=== PATIENT | male | born 1965 | race American Indian/Alaskan Native ===

== ENCOUNTER 2017-06-01 08:31 | Emergency (ER) | payer MEDICAID, OTHER ==
[2017-06-01 08:51] VITALS: TEMP 98.3
[2017-06-01] MEDS ORDERED: ceFAZolin IV 1 gm in Dextrose 1 GM/50 ML BAG IVPB STA (09:11)
[2017-06-01] MEDS ORDERED: Tetanus/Diphtheria Toxoids 0.5 ml Syringe IM ONE (09:11)
[2017-06-01] MEDS ORDERED: Labetalol 25mg/5ml Syringe IVP STA (09:11)
--- NOTE | 2017-06-01 09:11 | C.PDOC ---
History Of Present Illness 52-YEAR-OLD MALE, PRESENTS TO THE EMERGENCY DEPARTMENT WITH COMPLAINTS OF R HAND SWELL X 3 DAYS. PS R 5 FINGER ACCID PUNCTURED BY STAPLE. NO CONCERN FOR RETAINED FB. SINCE THEN INCR SWELLING FINGERS AND HAND. NO FEVER, CHILLS. NO HO DM. PS PREV GIVEN HTN MEDS BUT NEVER FU W A PMD. NONCOMPLIANT "FOR MANY YEARS". NO CP, DIZZY, RITCHIE. EXAM NAD NONTOXIC EXT R HAND +SWELLING DIFFUSE MILD NONPITTING AROM WO DIFF. NO FOCAL TEND. SKIN INTACT NO ERYTHEMA REMAINDER NEG Time Seen by Provider: 06/01/17 09:00 Chief Complaint (Nursing): Finger,Hand,&Wrist History Per: Patient History/Exam Limitations: no limitations Current Symptoms Are (Timing): Still Present Past Medical History Reviewed: Historical Data, Nursing Documentation, Vital Signs Vital Signs: Last Vital Signs Temp 98.3 F 06/01/17 08:43 Pulse 65 06/01/17 11:32 Resp 16 06/01/17 11:32 BP 164/96 H 06/01/17 11:32 Pulse Ox 99 06/01/17 11:34 - Medical History PMH: HTN Family History: States: No Known Family Hx - Social History Hx Tobacco Use: No Hx Alcohol Use: Yes Hx Substance Use: No - Immunization History Hx Tetanus Toxoid Vaccination: No ("I DON'T KNOW") Hx Influenza Vaccination: No Hx Pneumococcal Vaccination: No Review Of Systems Constitutional: Negative for: Fever, Chills Respiratory: Negative for: Shortness of Breath Gastrointestinal: Negative for: Nausea, Vomiting Musculoskeletal: Positive for: Hand Pain Physical Exam - Physical Exam Appears: Non-toxic, No Acute Distress Skin: Warm, Dry, No Rash Head: Atraumatic, Normacephalic Eye(s): bilateral: Normal Inspection, PERRL Nose: Normal Oral Mucosa: Moist Lips: Normal Appearing Neck: Normal ROM Cardiovascular: Rhythm Regular, No Murmur Respiratory: No Accessory Muscle Use Extremity: Other (R HAND +SWELLING DIFFUSE MILD NONPITTING AROM WO DIFF. NO FOCAL TEND.) Neurological/Psych: Oriented x3, Normal Speech ED Course And Treatment - Laboratory Results Result Diagrams: 06/01/17 10:26 06/01/17 10:26 O2 Sat by Pulse Oximetry: 99 (on RA) Pulse Ox Interpretation: Normal - Other Rad R HAND X-Ray: Interpreted by Me (NEG) Reevaluation Time: 11:49 Reassessment Condition: Improved (ADVISED NEED TO FU PMD FOR HTN MGMT, ABX COMPLETION) Disposition Counseled Patient/Family Regarding: Studies Performed, Diagnosis, Need For Followup, Rx Given - Disposition Referrals: [facility] [Outside] [facility] [Outside] Disposition: HOME/ ROUTINE Disposition Time: 11:50 Condition: IMPROVED Prescriptions: Amoxicillin/Clavulanate [Augmentin 875 MG-125 MG] 1 tab PO BID #14 tab Hydrochlorothiazide [Microzide] 12.5 mg PO DAILY #30 cap Lisinopril [Zestril] 10 mg PO DAILY #30 tab Instructions: Hypertension (ED), Cellulitis (ED) Forms: [employer] (Korean) - Clinical Impression Clinical Impression: Hypertension, Cellulitis - Scribe Statement The provider has reviewed the documentation as recorded by the Scribe (Juice Washington) All medical record entries made by the Scribe were at my direction and personally dictated by me. I have reviewed the chart and agree that the record accurately reflects my personal performance of the history, physical exam, medical decision making, and the department course for this patient. I have also personally directed, reviewed, and agree with the discharge instructions and disposition.
[2017-06-01] MEDS ORDERED: Enalaprilat 2.5 MG/2 ML IV ONE (09:24)
[2017-06-01] MEDS ORDERED: Enalaprilat 2.5 MG/2 ML ONE (09:55)
[2017-06-01] MEDS ORDERED: ceFAZolin 1 gm FROZEN Premix 1 GM/50 ML ML IVPB ONE (09:55)
--- NOTE | 2017-06-01 10:06 | RAD ---
PROCEDURE: Right Hand Radiographs. HISTORY: SWELLING RO FB R 5 FINGER COMPARISON: None. FINDINGS: BONES: Normal. No fracture. JOINTS: Normal. No osteoarthritic changes. SOFT TISSUES: Normal. OTHER FINDINGS: None. IMPRESSION: Normal right hand radiographs.
[2017-06-01 10:36] LABS: BASO # 0.1 K/uL (0.0-0.2); BASO % 1.1 % (0.0-2.0); EOS % 0.7 % (0.0-4.0); HEMOGLOBIN 14.1 g/dL (12.0-18.0); LYMPH # 2.4 K/uL (1.0-4.3); LYMPH % 41.9 % (20.0-40.0); MEAN CELL VOLUME 89.6 fL (80.0-94.0); MEAN CORPUSCULAR HEMOGLOBIN 30.6 pg (27.0-31.0); MEAN CORPUSCULAR HGB CONC 34.2 g/dL (33.0-37.0); MEAN PLATELET VOLUME 9.2 fL (7.2-11.7); MONO # 0.7 K/uL (0.0-0.8); MONO % 11.9 % (0.0-10.0); NEUT # 2.6 K/uL (1.8-7.0); NEUT % 44.4 % (50.0-75.0); NRBC % 0.1 % (0.0-2.0); RBC 4.6 Mil/uL (4.40-5.90); RED CELL DISTRIBUTION WIDTH 15.1 % (11.5-14.5); WHITE BLOOD COUNT 5.7 K/uL (4.8-10.8)
[2017-06-01 10:49] VITALS: RESP 16
[2017-06-01 11:01] LABS: BLOOD UREA NITROGEN 15 mg/dL (9-20); CALCIUM 8.7 mg/dl (8.6-10.4); GFR AFRICAN-AMERICAN > 60; GFR NON-AFRICAN AMERICAN > 60
[2017-06-01 11:32] VITALS: BP 164/96; PULSE 65
[2017-06-01 11:34] VITALS: O2SAT 99
== END 2017-06-01 12:10 | disposition home or self-care (01) ==
LOC: C.ER 08:31
DX: L03.113 Cellulitis of right upper limb (principal); I10 Essential (primary) hypertension
CPT/HCPCS: 73130; 80048; 85025; 87040; 90471; 90714; 96365; 96375; 99284; J0690

== ENCOUNTER 2017-10-24 20:16 | Emergency (ER) | payer SELFPAY ==
[2017-10-24 20:33] VITALS: RESP 18; TEMP 99.1
--- NOTE | 2017-10-24 20:51 | C.PDOC ---
History Of Present Illness 52 y/o male presents to the ED for evaluation of right pinky injury, sustained 1 week ago. States he accidentally stuck his right pinky with a fishing hook. Now complaining of increasing pain and swelling near the nail bed. Otherwise denies any fever, chills, redness or drainage to site. Reports his last tetanus booster was given here on 06/01/17. Additionally, patient reports PMHx of hypertension, but is noncompliant with medications. Denies any chest pain, SOB, blurry vision, or headache. Time Seen by Provider: 10/24/17 20:29 Chief Complaint (Nursing): Abnormal Skin Integrity History Per: Patient History/Exam Limitations: no limitations Onset/Duration Of Symptoms: Days Current Symptoms Are (Timing): Still Present Past Medical History Reviewed: Historical Data, Nursing Documentation, Vital Signs Vital Signs: Last Vital Signs Temp 99.1 F 10/24/17 20:29 Pulse 75 10/24/17 22:04 Resp 18 10/24/17 22:04 BP 181/99 H 10/24/17 22:04 Pulse Ox 98 10/24/17 22:04 - Medical History PMH: HTN Family History: States: Unknown Family Hx - Social History Hx Tobacco Use: No Hx Alcohol Use: Yes Hx Substance Use: No - Immunization History Hx Tetanus Toxoid Vaccination: No ("I DON'T KNOW") Hx Influenza Vaccination: No Hx Pneumococcal Vaccination: No Review Of Systems Constitutional: Negative for: Fever, Chills Eyes: Negative for: Vision Change Cardiovascular: Negative for: Chest Pain Respiratory: Negative for: Shortness of Breath Skin: Positive for: Lesions (to nailbed of right pinky finger). Negative for: Rash Neurological: Negative for: Headache Physical Exam - Physical Exam Appears: No Acute Distress Skin: No Rash Head: Atraumatic, Normacephalic Eye(s): bilateral: PERRL, EOMI Oral Mucosa: Moist Neck: Supple Chest: Symmetrical, No Tenderness Cardiovascular: Rhythm Regular, No Murmur Respiratory: No Rales, No Rhonchi, No Wheezing, Other (Clear to auscultation bilaterally) Extremity: Normal ROM, Capillary Refill (less than 2 sec), No Deformity, Swelling (trace bilateral pitting edema), Other (Mild swelling around nail bed of right 5th digit, mildly indurated; no warmth, erythema or fluctuance) Pulses: Left Radial: Normal, Right Radial: Normal Neurological/Psych: Oriented x3, Normal Speech, Normal Motor, Normal Sensation ED Course And Treatment O2 Sat by Pulse Oximetry: 99 (RA) Pulse Ox Interpretation: Normal Medical Decision Making Medical Decision Making: pt asymptomatic with elevated bp; dangers of untreated bp discussed with patient. pt given one dose lisinopril in ed, will d/c with one month; pt strongly advised to f.u pmd vishal. pt is asymptomatic; has no cp, no sob, no dizziness, headache or blurred vision. one dose lisinopiril given and discharged with one month supply- enough time to arrange out patient f/u appt. Disposition Counseled Patient/Family Regarding: Diagnosis, Need For Followup, Rx Given - Disposition Referrals: [facility] [Outside] Disposition: HOME/ ROUTINE Disposition Time: 21:57 Condition: GOOD Additional Instructions: Please take blood pressure daily at the same time. Please follow up with medical clinic or pmd on Friday for blood pressure check. Warm compresses to finger. Take antibiotics as prescribed. Prescriptions: Cephalexin [cephalexin] 500 mg PO QID #28 cap Lisinopril [Zestril] 10 mg PO DAILY #30 tablet Instructions: High Blood Pressure (DC) Forms: [employer] [facility] (Slovenian), General Discharge Instructions - Clinical Impression Clinical Impression: Hypertension, Finger infection - PA / FINE ARTIST / Resident Statement MD/DO has reviewed & agrees with the documentation as recorded. - Scribe Statement The provider has reviewed the documentation as recorded by the Scribe (Ana María Molina) All medical record entries made by the Scribe were at my direction and personally dictated by me. I have reviewed the chart and agree that the record accurately reflects my personal performance of the history, physical exam, medical decision making, and the department course for this patient. I have also personally directed, reviewed, and agree with the discharge instructions and disposition.
[2017-10-24 22:10] VITALS: BP 181/99; PULSE 75
[2017-10-25 07:06] VITALS: O2SAT 99
== END 2017-10-24 22:10 | disposition home or self-care (01) ==
LOC: C.ER 20:16
DX: I10 Essential (primary) hypertension (principal); L08.9 Local infection of the skin and subcutaneous tissue, unspecified

== ENCOUNTER 2017-12-16 15:42 | Inpatient (IN) | payer MEDICAID ==
[2017-12-16 16:34] LABS: BASO % 0.3 % (0.0-2.0); HEMOGLOBIN 16.2 g/dL (12.0-18.0); LYMPH # 1.2 K/uL (1.0-4.3); LYMPH % 15.7 % (20.0-40.0); MEAN CELL VOLUME 89.9 fL (80.0-94.0); MEAN CORPUSCULAR HEMOGLOBIN 30.4 pg (27.0-31.0); MEAN CORPUSCULAR HGB CONC 33.8 g/dL (33.0-37.0); MEAN PLATELET VOLUME 9.1 fL (7.2-11.7); MONO # 0.2 K/uL (0.0-0.8); MONO % 3.1 % (0.0-10.0); NEUT # 6.1 K/uL (1.8-7.0); NEUT % 80.9 % (50.0-75.0); NRBC % 0.2 % (0.0-2.0); RBC 5.32 Mil/uL (4.40-5.90); RED CELL DISTRIBUTION WIDTH 14.6 % (11.5-14.5); WHITE BLOOD COUNT 7.5 K/uL (4.8-10.8)
[2017-12-16 16:41] LABS: INR 1.2; PROTHROMBIN TIME 12.6 SECONDS (9.7-12.2)
[2017-12-16 16:57] LABS: ALB/GLOB RATIO 1.3 (1.0-2.1); ALBUMIN 5.1 g/dL (3.5-5.0); ALT/SGPT 38 U/L (21-72); AST/SGOT 28 U/L (17-59); BLOOD UREA NITROGEN 9 mg/dL (9-20); CALCIUM 9.9 mg/dl (8.6-10.4); GFR AFRICAN-AMERICAN > 60; GFR NON-AFRICAN AMERICAN > 60; LIPASE 363 U/L (23-300)
[2017-12-16] MEDS ORDERED: Enalaprilat 2.5 MG/2 ML IV ONE (17:08)
[2017-12-16] MEDS ORDERED: Enalaprilat 2.5 MG/2 ML ONE (17:14)
[2017-12-16 17:24] LABS: URINE BILIRUBIN NEGATIVE (NEGATIVE); URINE BLOOD 1+ (NEGATIVE); URINE CLARITY Clear (Clear); URINE COLOR Yellow (YELLOW); URINE GLUCOSE (UA) 2+ mg/dL (Normal); URINE LEUKOCYTE ESTERASE NEG Leu/uL (Negative); URINE PROTEIN 2+ mg/dL (NEGATIVE); URINE UROBILINOGEN NORMAL mg/dL (0.2-1.0)
[2017-12-16] MEDS ORDERED: Sucralfate 1 gm/10 ml Oral Susp UD PO STA (17:46)
[2017-12-16 17:55] LABS: BARBITURATES, UR NEGATIVE (NEGATIVE); BENZODIAZEPINES, UR NEGATIVE (NEGATIVE); OPIATES, UR NEGATIVE (NEGATIVE); PHENCYCLIDINE, UR NEGATIVE (NEGATIVE)
[2017-12-16] MEDS ORDERED: Alum-Mag Hydrox-Simethicone Susp (30 mL) PO STA (18:40)
[2017-12-16] MEDS ORDERED: Potassium Chloride 20 mEq ER Tab PO STA (18:40)
[2017-12-16] MEDS ORDERED: Potassium Chloride 20 mEq ER Tab PO ONE (18:51)
[2017-12-16] MEDS ORDERED: Alum-Mag Hydrox-Simethicone Susp (30 mL) ONE (18:51)
[2017-12-16] MEDS ORDERED: Labetalol 25mg/5ml Syringe IVP STA (20:05)
--- NOTE | 2017-12-16 20:12 | C.PDOC ---
Time Seen by Provider: 12/16/17 15:59 Chief Complaint (Nursing): GI Problem History Per: Patient Onset/Duration Of Symptoms: Hrs (since this morning) Current Symptoms Are (Timing): Still Present Number Of Bleeding Episodes: Multiple: Amount of Blood Loss: Medium Severity: Moderate Quality Of Discomfort: Unable To Describe Associated Symptoms: Nausea, Vomiting, Coffee Ground material Modifying Factors: Other Indicated Below Currently Taking: NSAID (Pt states he took Aleve yesterday) Additional History Per: Prior Records Past Medical History Reviewed: Historical Data, Nursing Documentation, Vital Signs Vital Signs: Last Vital Signs Temp 98.7 F 12/16/17 15:50 Pulse 87 12/16/17 18:27 Resp 18 12/16/17 18:27 BP 191/132 H 12/16/17 18:57 Pulse Ox 97 12/16/17 20:28 - Medical History PMH: HTN Surgical History: No Surg Hx Family History: States: Unknown Family Hx - Social History Hx Tobacco Use: No Hx Alcohol Use: Yes (Pt drank alcohol yesterday) Hx Substance Use: No - Immunization History Hx Tetanus Toxoid Vaccination: No ("I DON'T KNOW") Hx Influenza Vaccination: No Hx Pneumococcal Vaccination: No Review Of Systems Except As Marked, All Systems Reviewed And Found Negative. Constitutional: Negative for: Fever Cardiovascular: Negative for: Chest Pain Respiratory: Negative for: Shortness of Breath Gastrointestinal: Positive for: Nausea, Vomiting. Negative for: Constipation, Melena, Hematochezia Musculoskeletal: Negative for: Neck Pain, Back Pain, Leg Pain Skin: Negative for: Rash Neurological: Negative for: Weakness, Numbness, Seizures, Altered Mental Status , Headache Physical Exam - Physical Exam Appears: Non-toxic, Other (Uncomfortable) Skin: Normal Color, Warm, Dry Head: Atraumatic, Normacephalic Eye(s): bilateral: PERRL, EOMI Neck: Normal ROM, Supple Cardiovascular: Rhythm Regular Respiratory: Normal Breath Sounds, No Accessory Muscle Use Gastrointestinal/Abdominal: Soft, No Guarding, No Rebound Back: No CVA Tenderness Extremity: Normal ROM Neurological/Psych: Oriented x3, Normal Motor, Normal Sensation ED Course And Treatment - Laboratory Results Result Diagrams: 12/16/17 16:26 12/16/17 16:26 ECG: Interpreted By Me, Viewed By Me ECG Rhythm: Sinus Rhythm, Nonspecific Changes ECG Interpretation: Abnormal Interpretation Of ECG: LVH Rate From EC O2 Sat by Pulse Oximetry: 97 Pulse Ox Interpretation: Normal Progress - Interventions Interventions:: Observation - Medications Administered Oral: Antihypertensive Intravenous: Antiemetic, Antihypertensive, Other (PPI) - Data Reviewed Data Reviewed: Lab, EKG, Old records - Patient Status Patient status: Partially improved - Critical Care Citical Care: Excluding Proc Time Critical Care Time: 60 minutes - Continuity of Care Discussed patient case with:: Patient, Family-HIPPA compliant, ED Nurse, On- call PMD-pt unassigned - Patient Plan Patient Plan: Admission, Telemetry Disposition Discussed With DrOtto: Maryuri Fraga Comment: He accepted pt on his service. Doctor Will See Patient In The: Hospital Counseled Patient/Family Regarding: Studies Performed, Diagnosis - Disposition Disposition: HOSPITALIZED Disposition Time: 20:34 Condition: GUARDED - Clinical Impression Clinical Impression: Upper GI bleed, Hypertensive urgency
[2017-12-17] MEDS: Sodium Chloride 0.9% 1,000 ML IV SCH ×3 (01:30→14:52)
[2017-12-17 06:44] LABS: BASO # 0.1 K/uL (0.0-0.2); BASO % 0.5 % (0.0-2.0); EOS % 0.4 % (0.0-4.0); LYMPH # 2.7 K/uL (1.0-4.3); LYMPH % 24.2 % (20.0-40.0); MEAN CORPUSCULAR HEMOGLOBIN 30.9 pg (27.0-31.0); MEAN CORPUSCULAR HGB CONC 34.3 g/dL (33.0-37.0); MONO # 1.2 K/uL (0.0-0.8); MONO % 10.6 % (0.0-10.0); NEUT # 7.1 K/uL (1.8-7.0); NEUT % 64.3 % (50.0-75.0); NRBC % 0.1 % (0.0-2.0); RBC 5.17 Mil/uL (4.40-5.90)
[2017-12-17 07:12] LABS: ALB/GLOB RATIO 1.3 (1.0-2.1); ALBUMIN 4.5 g/dL (3.5-5.0); ALT/SGPT 28 U/L (21-72); AST/SGOT 29 U/L (17-59); BLOOD UREA NITROGEN 11 mg/dL (9-20); CALCIUM 6.3 mg/dl (8.6-10.4); GFR AFRICAN-AMERICAN > 60; GFR NON-AFRICAN AMERICAN > 60
--- NOTE | 2017-12-17 07:15 | CP.PCM.CON ---
<Allen Bailey - Last Filed: 12/17/17 13:06> History of Present Illness - History of Present Illness History of Present Illness: PGY-4 GI Fellow Initial Consult Note Mr. Mathews is a 52 yo BM with h/o HTN presenting with N/V. He states that over the day on 12/16/17 he had multiple episodes of nausea and vomiting with emesis consisting of watery or "maroonish, dark" emesis. States that he recently ran out of his BP medications a few days prior. He denies abd pain, melena, hematochezia, dysphagia, NSAID use (though ED note documents) or weight loss. He states that he normally moves his bowels daily with semi-formed brown stool with last BM day prior to presentation. States that he is already feeling since admission since his BP is under better control (was up to 220/130s, now 140/80s). He denies any prior EGD or CSPY. 12 point ROS negative other than stated above MHx: As above SurgHx: Cyst removal Meds: Reviewed in MAR FamHx: Denied h/o GI/Liver problems SocHx: EtOH use on weekend with few drinks, denied Tob or Illicits All: NKDA Past Patient History - Infectious Disease Hx of Infectious Diseases: None - Past Medical History & Family History Past Medical History?: Yes - Past Social History Smoking Status: Never Smoked - CARDIAC Hx Hypertension: Yes - PULMONARY Hx Respiratory Disorders: No - NEUROLOGICAL Hx Neurological Disorder: No - HEENT Hx HEENT Problems: No - RENAL Hx Chronic Kidney Disease: No - ENDOCRINE/METABOLIC Hx Endocrine Disorders: No - HEMATOLOGICAL/ONCOLOGICAL Hx Blood Disorders: No - INTEGUMENTARY Hx Dermatological Problems: No - MUSCULOSKELETAL/RHEUMATOLOGICAL Hx Falls: No - GASTROINTESTINAL Hx Nausea: Yes Hx Vomiting: Yes - GENITOURINARY/GYNECOLOGICAL Hx Genitourinary Disorders: No - PSYCHIATRIC Hx Psychophysiologic Disorder: No Hx Substance Use: No - SURGICAL HISTORY Hx Surgeries: Yes Other/Comment: removal of cyst under the Right breast - ANESTHESIA Hx Anesthesia: Yes Hx Anesthesia Reactions: No Hx Malignant Hyperthermia: No Meds Allergies/Adverse Reactions: Allergies Allergy/AdvReac Type Severity Reaction Status Date / Time No Known Allergies Allergy Verified 10/24/17 20:28 - Medications Medications: Current Medications Clonidine HCl (Catapres) 0.1 mg PO Q8H [facility] Last Admin: 12/17/17 02:31 Dose: 0.1 mg Sodium Chloride (Sodium Chloride 0.9%) 1,000 mls @ 100 mls/hr IV .Q10H [facility] Last Admin: 12/17/17 01:30 Dose: 100 mls/hr Pantoprazole Sodium (Protonix Inj) 40 mg IVP Q12H [facility] Physical Exam - Constitutional Appears: Well, Non-toxic, No Acute Distress - Head Exam Head Exam: ATRAUMATIC, NORMAL INSPECTION - Eye Exam Eye Exam: EOMI. absent: Conjunctival injection, Scleral icterus - ENT Exam ENT Exam: Mucous Membranes Moist, Normal External Ear Exam. absent: Mucous Membranes Dry - Respiratory Exam Respiratory Exam: Clear to Auscultation Bilateral, NORMAL BREATHING PATTERN. absent: Accessory Muscle Use, Wheezes, Respiratory Distress - Cardiovascular Exam Cardiovascular Exam: REGULAR RHYTHM, RRR. absent: Bradycardia, Tachycardia - GI/Abdominal Exam GI & Abdominal Exam: Normal Bowel Sounds, Soft. absent: Bruit, Diminished Bowel Sounds, Distended, Firm, Guarding, Hernia, Hyperactive Bowel Sounds, Hypoactive Bowel Sounds, Mass, Organomegaly, Pulsatile Mass, Rebound, Rigid, Tenderness - Extremities Exam Extremities exam: Positive for: normal inspection. Negative for: pedal edema - Neurological Exam Neurological exam: Alert, CN II-XII Intact, Oriented x3 - Psychiatric Exam Psychiatric exam: Normal Affect, Normal Mood - Skin Skin Exam: Normal Color, Warm Results - Vital Signs Recent Vital Signs: Last Vital Signs Temp 99.2 F 12/17/17 00:00 Pulse 88 12/17/17 01:13 Resp 19 12/17/17 01:13 BP 205/126 H 12/17/17 01:13 Pulse Ox 97 12/17/17 01:13 - Labs Result Diagrams: 12/17/17 06:40 12/17/17 06:40 Labs: Laboratory Results - last 24 hr 12/16/17 12/16/17 12/16/17 16:26 16:26 16:26 WBC 7.5 RBC 5.32 Hgb 16.2 D Hct 47.8 MCV 89.9 MCH 30.4 MCHC 33.8 RDW 14.6 H Plt Count 275 MPV 9.1 Neut % (Auto) 80.9 H Lymph % (Auto) 15.7 L [place] % (Auto) 3.1 Eos % (Auto) 0.0 Baso % (Auto) 0.3 Neut # (Auto) 6.1 Lymph # (Auto) 1.2 [place] # (Auto) 0.2 Eos # (Auto) 0.0 Baso # (Auto) 0.0 PT 12.6 H INR 1.2 APTT 33 Sodium 143 Potassium 3.3 L Chloride 100 Carbon Dioxide 23 Anion Gap 23 H BUN 9 Creatinine 0.8 Est GFR ( Amer) > 60 Est GFR (Non-Af Amer) > 60 Random Glucose 138 H Calcium 9.9 Magnesium Total Bilirubin 0.6 AST 28 ALT 38 Alkaline Phosphatase 70 Troponin I < 0.0120 Total Protein 8.9 H Albumin 5.1 H Globulin 3.8 Albumin/Globulin Ratio 1.3 Lipase 363 H Urine Color Urine Clarity Urine pH Ur Specific [place] Urine Protein Urine Glucose (UA) Urine Ketones Urine Blood Urine Nitrate Urine Bilirubin Urine Urobilinogen Ur Leukocyte Esterase Urine WBC (Auto) Urine RBC (Auto) Urine Opiates Screen Urine Methadone Screen Ur Barbiturates Screen Ur Phencyclidine Scrn Ur Amphetamines Screen U Benzodiazepines Scrn U Oth Cocaine Metabols U Cannabinoids Screen Alcohol, Quantitative 12/16/17 12/16/17 12/16/17 17:11 17:16 17:16 WBC RBC Hgb Hct MCV MCH MCHC RDW Plt Count MPV Neut % (Auto) Lymph % (Auto) [place] % (Auto) Eos % (Auto) Baso % (Auto) Neut # (Auto) Lymph # (Auto) [place] # (Auto) Eos # (Auto) Baso # (Auto) PT INR APTT Sodium Potassium Chloride Carbon Dioxide Anion Gap BUN Creatinine Est GFR ( Amer) Est GFR (Non-Af Amer) Random Glucose Calcium Magnesium 1.7 Total Bilirubin AST ALT Alkaline Phosphatase Troponin I Total Protein Albumin Globulin Albumin/Globulin Ratio Lipase Urine Color Yellow Urine Clarity Clear Urine pH 8.0 Ur Specific [place] 1.016 Urine Protein 2+ H Urine Glucose (UA) 2+ H Urine Ketones Trace Urine Blood 1+ H Urine Nitrate Negative Urine Bilirubin Negative Urine Urobilinogen Normal Ur Leukocyte Esterase Neg Urine WBC (Auto) 1 Urine RBC (Auto) 7 H Urine Opiates Screen Negative Urine Methadone Screen Negative Ur Barbiturates Screen Negative Ur Phencyclidine Scrn Negative Ur Amphetamines Screen Negative U Benzodiazepines Scrn Negative U Oth Cocaine Metabols Negative U Cannabinoids Screen Positive H Alcohol, Quantitative < 10 12/17/17 06:40 WBC 11.0 H RBC 5.17 Hgb 16.0 Hct 46.5 MCV 90.0 MCH 30.9 MCHC 34.3 RDW 15.0 H Plt Count 192 MPV 9.0 Neut % (Auto) 64.3 Lymph % (Auto) 24.2 [place] % (Auto) 10.6 H Eos % (Auto) 0.4 Baso % (Auto) 0.5 Neut # (Auto) 7.1 H Lymph # (Auto) 2.7 [place] # (Auto) 1.2 H Eos # (Auto) 0.0 Baso # (Auto) 0.1 PT INR APTT Sodium Potassium Chloride Carbon Dioxide Anion Gap BUN Creatinine Est GFR ( Amer) Est GFR (Non-Af Amer) Random Glucose Calcium Magnesium Total Bilirubin AST ALT Alkaline Phosphatase Troponin I Total Protein Albumin Globulin Albumin/Globulin Ratio Lipase Urine Color Urine Clarity Urine pH Ur Specific [place] Urine Protein Urine Glucose (UA) Urine Ketones Urine Blood Urine Nitrate Urine Bilirubin Urine Urobilinogen Ur Leukocyte Esterase Urine WBC (Auto) Urine RBC (Auto) Urine Opiates Screen Urine Methadone Screen Ur Barbiturates Screen Ur Phencyclidine Scrn Ur Amphetamines Screen U Benzodiazepines Scrn U Oth Cocaine Metabols U Cannabinoids Screen Alcohol, Quantitative Assessment & Plan - Assessment and Plan (Free Text) Assessment: 52 yo BM with HTN presenting with uncontrolled BP and N/V. # Nausea/Vomiting, possible hematemesis: Likely related to uncontrolled BP as pt reports running out of BP meds prior to start of symptoms then resolution of BP symptoms here. Possible hematemesis related to Katie Capone tear, reassuringly no further symptoms. Though pt denied illicits, was positive on UDS for MJ as that could cause cyclical vomiting. # CRC Screening: Pt never had CSPY before, is BM > 45 yo. Plan: - Continue to control BP as you are - PPI IV BID can be switch to Daily PO x 2 weeks - Supportive care - Rec OP f/u with GI for CSPY - Full Liq Diet, ADAT Pt seen and examined with Dr. Savage <Jed Savage Y - Last Filed: 12/17/17 13:30> Meds - Medications Medications: Current Medications Clonidine HCl (Catapres) 0.1 mg PO Q8H [facility] Last Admin: 12/17/17 09:45 Dose: 0.1 mg Sodium Chloride (Sodium Chloride 0.9%) 1,000 mls @ 100 mls/hr IV .Q10H [facility] Last Admin: 12/17/17 11:15 Dose: Not Given Pantoprazole Sodium (Protonix Inj) 40 mg IVP Q12H [facility] Last Admin: 12/17/17 09:44 Dose: 40 mg Results - Vital Signs Recent Vital Signs: Last Vital Signs Temp 98.4 F 12/17/17 08:00 Pulse 79 12/17/17 09:59 Resp 16 12/17/17 09:50 BP 146/110 H 12/17/17 09:50 Pulse Ox 99 12/17/17 08:00 - Labs Result Diagrams: 12/17/17 06:40 12/17/17 06:40 Labs: Laboratory Results - last 24 hr 12/16/17 12/16/17 12/16/17 16:26 16:26 16:26 WBC 7.5 RBC 5.32 Hgb 16.2 D Hct 47.8 MCV 89.9 MCH 30.4 MCHC 33.8 RDW 14.6 H Plt Count 275 MPV 9.1 Neut % (Auto) 80.9 H Lymph % (Auto) 15.7 L [place] % (Auto) 3.1 Eos % (Auto) 0.0 Baso % (Auto) 0.3 Neut # (Auto) 6.1 Lymph # (Auto) 1.2 [place] # (Auto) 0.2 Eos # (Auto) 0.0 Baso # (Auto) 0.0 PT 12.6 H INR 1.2 APTT 33 Sodium 143 Potassium 3.3 L Chloride 100 Carbon Dioxide 23 Anion Gap 23 H BUN 9 Creatinine 0.8 Est GFR ( Amer) > 60 Est GFR (Non-Af Amer) > 60 POC Glucose (mg/dL) Random Glucose 138 H Calcium 9.9 Phosphorus Magnesium Total Bilirubin 0.6 AST 28 ALT 38 Alkaline Phosphatase 70 Troponin I < 0.0120 Total Protein 8.9 H Albumin 5.1 H Globulin 3.8 Albumin/Globulin Ratio 1.3 Lipase 363 H Urine Color Urine Clarity Urine pH Ur Specific [place] Urine Protein Urine Glucose (UA) Urine Ketones Urine Blood Urine Nitrate Urine Bilirubin Urine Urobilinogen Ur Leukocyte Esterase Urine WBC (Auto) Urine RBC (Auto) Urine Opiates Screen Urine Methadone Screen Ur Barbiturates Screen Ur Phencyclidine Scrn Ur Amphetamines Screen U Benzodiazepines Scrn U Oth Cocaine Metabols U Cannabinoids Screen Alcohol, Quantitative 12/16/17 12/16/17 12/16/17 17:11 17:16 17:16 WBC RBC Hgb Hct MCV MCH MCHC RDW Plt Count MPV Neut % (Auto) Lymph % (Auto) [place] % (Auto) Eos % (Auto) Baso % (Auto) Neut # (Auto) Lymph # (Auto) [place] # (Auto) Eos # (Auto) Baso # (Auto) PT INR APTT Sodium Potassium Chloride Carbon Dioxide Anion Gap BUN Creatinine Est GFR ( Amer) Est GFR (Non-Af Amer) POC Glucose (mg/dL) Random Glucose Calcium Phosphorus Magnesium 1.7 Total Bilirubin AST ALT Alkaline Phosphatase Troponin I Total Protein Albumin Globulin Albumin/Globulin Ratio Lipase Urine Color Yellow Urine Clarity Clear Urine pH 8.0 Ur Specific [place] 1.016 Urine Protein 2+ H Urine Glucose (UA) 2+ H Urine Ketones Trace Urine Blood 1+ H Urine Nitrate Negative Urine Bilirubin Negative Urine Urobilinogen Normal Ur Leukocyte Esterase Neg Urine WBC (Auto) 1 Urine RBC (Auto) 7 H Urine Opiates Screen Negative Urine Methadone Screen Negative Ur Barbiturates Screen Negative Ur Phencyclidine Scrn Negative Ur Amphetamines Screen Negative U Benzodiazepines Scrn Negative U Oth Cocaine Metabols Negative U Cannabinoids Screen Positive H Alcohol, Quantitative < 10 12/17/17 12/17/17 12/17/17 06:40 06:40 12:30 WBC 11.0 H RBC 5.17 Hgb 16.0 Hct 46.5 MCV 90.0 MCH 30.9 MCHC 34.3 RDW 15.0 H Plt Count 192 MPV 9.0 Neut % (Auto) 64.3 Lymph % (Auto) 24.2 [place] % (Auto) 10.6 H Eos % (Auto) 0.4 Baso % (Auto) 0.5 Neut # (Auto) 7.1 H Lymph # (Auto) 2.7 [place] # (Auto) 1.2 H Eos # (Auto) 0.0 Baso # (Auto) 0.1 PT INR APTT Sodium 137 Potassium 5.7 H Chloride 103 Carbon Dioxide 22 Anion Gap 19 BUN 11 Creatinine 0.8 Est GFR ( Amer) > 60 Est GFR (Non-Af Amer) > 60 POC Glucose (mg/dL) 109 Random Glucose 117 H Calcium 6.3 L Phosphorus 3.4 Magnesium 2.3 Total Bilirubin 0.7 AST 29 ALT 28 Alkaline Phosphatase 50 Troponin I Total Protein 7.9 Albumin 4.5 Globulin 3.4 Albumin/Globulin Ratio 1.3 Lipase Urine Color Urine Clarity Urine pH Ur Specific [place] Urine Protein Urine Glucose (UA) Urine Ketones Urine Blood Urine Nitrate Urine Bilirubin Urine Urobilinogen Ur Leukocyte Esterase Urine WBC (Auto) Urine RBC (Auto) Urine Opiates Screen Urine Methadone Screen Ur Barbiturates Screen Ur Phencyclidine Scrn Ur Amphetamines Screen U Benzodiazepines Scrn U Oth Cocaine Metabols U Cannabinoids Screen Alcohol, Quantitative Attending/Attestation - Attestation I have personally seen and examined this patient.: Yes I have fully participated in the care of the patient.: Yes I have reviewed all pertinent clinical information: Yes Notes (Text): 12/17/17 13:25 I have seen and examined patient with GI fellow. Agree with above documentation with the following additions. In brief, this is a 52 year old male with history of HTN who presented to hospital with complaint of nausea, dizziness, and vomiting which began yesterday. He reports recently being without blood pressure medication for the past few days and on arrival to hospital found to have hypertensive urgency and transferred to intensive care unit where he is currently seen. Since arrival, his blood pressure has been controlled better and his symptoms of nausea and vomiting have resolved. He otherwise denies abdominal pain, fever/chills, weight loss, rectal bleeding, or change in bowel habits. No prior endoscopic evaluation. HTN - uncontrolled with urgency Nausea, vomiting - resolved - Full liquid diet, advance slowly as tolerated - H/H stable, continue to monitor - Continue with PPI therapy for time being for 14 day duration - Abdominal CT imaging ordered by medical team, follow up results - Patient would benefit from elective outpatient age appropriate screening colonoscopy following resolution of acute symptoms - No further planned GI intervention, will sign off case. Please reconsult as necessary, thank you.
--- NOTE | 2017-12-17 12:43 | CP.PCM.HP ---
Past Patient History - Infectious Disease Hx of Infectious Diseases: None - Past Medical History & Family History Past Medical History?: Yes - Past Social History Smoking Status: Never Smoked - CARDIAC Hx Hypertension: Yes - PULMONARY Hx Respiratory Disorders: No - NEUROLOGICAL Hx Neurological Disorder: No - HEENT Hx HEENT Problems: No - RENAL Hx Chronic Kidney Disease: No - ENDOCRINE/METABOLIC Hx Endocrine Disorders: No - HEMATOLOGICAL/ONCOLOGICAL Hx Blood Disorders: No - INTEGUMENTARY Hx Dermatological Problems: No - MUSCULOSKELETAL/RHEUMATOLOGICAL Hx Falls: No - GASTROINTESTINAL Hx Nausea: Yes Hx Vomiting: Yes - GENITOURINARY/GYNECOLOGICAL Hx Genitourinary Disorders: No - PSYCHIATRIC Hx Psychophysiologic Disorder: No Hx Substance Use: No - SURGICAL HISTORY Hx Surgeries: Yes Other/Comment: removal of cyst under the Right breast - ANESTHESIA Hx Anesthesia: Yes Hx Anesthesia Reactions: No Hx Malignant Hyperthermia: No Meds Allergies/Adverse Reactions: Allergies Allergy/AdvReac Type Severity Reaction Status Date / Time No Known Allergies Allergy Verified 10/24/17 20:28 Physical Exam - Constitutional Appears: Well - Head Exam Head Exam: ATRAUMATIC, NORMAL INSPECTION, NORMOCEPHALIC - Eye Exam Eye Exam: EOMI, Normal appearance, PERRL Pupil Exam: NORMAL ACCOMODATION, PERRL - ENT Exam ENT Exam: Mucous Membranes Moist, Normal Exam - Neck Exam Neck exam: Positive for: Normal Inspection - Respiratory Exam Respiratory Exam: Decreased Breath Sounds - Cardiovascular Exam Cardiovascular Exam: REGULAR RHYTHM, +S1, +S2 - GI/Abdominal Exam GI & Abdominal Exam: Diminished Bowel Sounds, Soft - Rectal Exam Rectal Exam: Deferred Results - Vital Signs Recent Vital Signs: Last Vital Signs Temp 98.4 F 12/17/17 08:00 Pulse 79 12/17/17 09:59 Resp 16 12/17/17 09:50 BP 146/110 H 12/17/17 09:50 Pulse Ox 99 12/17/17 08:00 - Labs Result Diagrams: 12/17/17 06:40 12/17/17 06:40 Labs: Laboratory Results - last 24 hr 12/16/17 12/16/17 12/16/17 16:26 16:26 16:26 WBC 7.5 RBC 5.32 Hgb 16.2 D Hct 47.8 MCV 89.9 MCH 30.4 MCHC 33.8 RDW 14.6 H Plt Count 275 MPV 9.1 Neut % (Auto) 80.9 H Lymph % (Auto) 15.7 L [place] % (Auto) 3.1 Eos % (Auto) 0.0 Baso % (Auto) 0.3 Neut # (Auto) 6.1 Lymph # (Auto) 1.2 [place] # (Auto) 0.2 Eos # (Auto) 0.0 Baso # (Auto) 0.0 PT 12.6 H INR 1.2 APTT 33 Sodium 143 Potassium 3.3 L Chloride 100 Carbon Dioxide 23 Anion Gap 23 H BUN 9 Creatinine 0.8 Est GFR ( Amer) > 60 Est GFR (Non-Af Amer) > 60 POC Glucose (mg/dL) Random Glucose 138 H Calcium 9.9 Phosphorus Magnesium Total Bilirubin 0.6 AST 28 ALT 38 Alkaline Phosphatase 70 Troponin I < 0.0120 Total Protein 8.9 H Albumin 5.1 H Globulin 3.8 Albumin/Globulin Ratio 1.3 Lipase 363 H Urine Color Urine Clarity Urine pH Ur Specific [place] Urine Protein Urine Glucose (UA) Urine Ketones Urine Blood Urine Nitrate Urine Bilirubin Urine Urobilinogen Ur Leukocyte Esterase Urine WBC (Auto) Urine RBC (Auto) Urine Opiates Screen Urine Methadone Screen Ur Barbiturates Screen Ur Phencyclidine Scrn Ur Amphetamines Screen U Benzodiazepines Scrn U Oth Cocaine Metabols U Cannabinoids Screen Alcohol, Quantitative 12/16/17 12/16/17 12/16/17 17:11 17:16 17:16 WBC RBC Hgb Hct MCV MCH MCHC RDW Plt Count MPV Neut % (Auto) Lymph % (Auto) [place] % (Auto) Eos % (Auto) Baso % (Auto) Neut # (Auto) Lymph # (Auto) [place] # (Auto) Eos # (Auto) Baso # (Auto) PT INR APTT Sodium Potassium Chloride Carbon Dioxide Anion Gap BUN Creatinine Est GFR ( Amer) Est GFR (Non-Af Amer) POC Glucose (mg/dL) Random Glucose Calcium Phosphorus Magnesium 1.7 Total Bilirubin AST ALT Alkaline Phosphatase Troponin I Total Protein Albumin Globulin Albumin/Globulin Ratio Lipase Urine Color Yellow Urine Clarity Clear Urine pH 8.0 Ur Specific [place] 1.016 Urine Protein 2+ H Urine Glucose (UA) 2+ H Urine Ketones Trace Urine Blood 1+ H Urine Nitrate Negative Urine Bilirubin Negative Urine Urobilinogen Normal Ur Leukocyte Esterase Neg Urine WBC (Auto) 1 Urine RBC (Auto) 7 H Urine Opiates Screen Negative Urine Methadone Screen Negative Ur Barbiturates Screen Negative Ur Phencyclidine Scrn Negative Ur Amphetamines Screen Negative U Benzodiazepines Scrn Negative U Oth Cocaine Metabols Negative U Cannabinoids Screen Positive H Alcohol, Quantitative < 10 12/17/17 12/17/17 12/17/17 06:40 06:40 12:30 WBC 11.0 H RBC 5.17 Hgb 16.0 Hct 46.5 MCV 90.0 MCH 30.9 MCHC 34.3 RDW 15.0 H Plt Count 192 MPV 9.0 Neut % (Auto) 64.3 Lymph % (Auto) 24.2 [place] % (Auto) 10.6 H Eos % (Auto) 0.4 Baso % (Auto) 0.5 Neut # (Auto) 7.1 H Lymph # (Auto) 2.7 [place] # (Auto) 1.2 H Eos # (Auto) 0.0 Baso # (Auto) 0.1 PT INR APTT Sodium 137 Potassium 5.7 H Chloride 103 Carbon Dioxide 22 Anion Gap 19 BUN 11 Creatinine 0.8 Est GFR ( Amer) > 60 Est GFR (Non-Af Amer) > 60 POC Glucose (mg/dL) 109 Random Glucose 117 H Calcium 6.3 L Phosphorus 3.4 Magnesium 2.3 Total Bilirubin 0.7 AST 29 ALT 28 Alkaline Phosphatase 50 Troponin I Total Protein 7.9 Albumin 4.5 Globulin 3.4 Albumin/Globulin Ratio 1.3 Lipase Urine Color Urine Clarity Urine pH Ur Specific [place] Urine Protein Urine Glucose (UA) Urine Ketones Urine Blood Urine Nitrate Urine Bilirubin Urine Urobilinogen Ur Leukocyte Esterase Urine WBC (Auto) Urine RBC (Auto) Urine Opiates Screen Urine Methadone Screen Ur Barbiturates Screen Ur Phencyclidine Scrn Ur Amphetamines Screen U Benzodiazepines Scrn U Oth Cocaine Metabols U Cannabinoids Screen Alcohol, Quantitative
--- NOTE | 2017-12-17 13:52 | CT ---
Date of service: 12/17/2017 PROCEDURE: CT Abdomen and Pelvis without intravenous contrast HISTORY: VOMITING COMPARISON: None. TECHNIQUE: Without contrast.. Contrast dose: 0 Radiation dose: Total exam DLP = 1396.30 mGy-cm. This CT exam was performed using one or more of the following dose reduction techniques: Automated exposure control, adjustment of the mA and/or kV according to patient size, and/or use of iterative reconstruction technique. FINDINGS: LOWER THORAX: Small hiatal hernia. No infiltrate/ effusion. LIVER: Unremarkable. No gross lesion or ductal dilatation. GALLBLADDER AND BILE DUCTS: Unremarkable. PANCREAS: Unremarkable. No gross lesion or ductal dilatation. SPLEEN: Unremarkable. ADRENALS: Unremarkable. No mass. KIDNEYS AND URETERS: Unremarkable. No hydronephrosis. No solid mass. VASCULATURE: Unremarkable. No aortic aneurysm. BOWEL: Descending/sigmoid colonic diverticulosis. No evidence of diverticulitis. No bowel obstruction. No other abnormal bowel loops are identified. Small hiatal hernia. Nondistended stomach, suboptimally evaluated. APPENDIX: Unremarkable. Normal appendix. PERITONEUM: Unremarkable. No free fluid. No free air. LYMPH NODES: Unremarkable. No enlarged lymph nodes. BLADDER: Unremarkable. REPRODUCTIVE: Normal prostate BONES: No acute fracture. OTHER FINDINGS: None. IMPRESSION: Diverticulosis of the descending and sigmoid colon without evidence of diverticulitis. No other abnormal bowel loops. Small hiatal hernia. No additional abnormality.
--- NOTE | 2017-12-17 15:21 | CARD ---
APPROVED REPORT Date of service: 12/16/2017 EKG Measurement Heart [id number] <Conclusion> Normal sinus rhythm Possible Left atrial enlargement Left ventricular hypertrophy Inferior infarct, age undetermined Abnormal ECG
[2017-12-18 08:26] VITALS: BP 139/67
[2017-12-18 08:56] LABS: BASO # 0.1 K/uL (0.0-0.2); BASO % 0.8 % (0.0-2.0); EOS % 0.1 % (0.0-4.0); HEMOGLOBIN 14.9 g/dL (12.0-18.0); LYMPH # 3.4 K/uL (1.0-4.3); LYMPH % 47.9 % (20.0-40.0); MEAN CELL VOLUME 90.6 fL (80.0-94.0); MEAN CORPUSCULAR HEMOGLOBIN 30.4 pg (27.0-31.0); MEAN CORPUSCULAR HGB CONC 33.5 g/dL (33.0-37.0); MEAN PLATELET VOLUME 8.4 fL (7.2-11.7); MONO # 0.6 K/uL (0.0-0.8); MONO % 8.5 % (0.0-10.0); NEUT % 42.7 % (50.0-75.0); NRBC % 0.1 % (0.0-2.0); RBC 4.91 Mil/uL (4.40-5.90); RED CELL DISTRIBUTION WIDTH 15.1 % (11.5-14.5); WHITE BLOOD COUNT 7.1 K/uL (4.8-10.8)
[2017-12-18] MEDS ORDERED: Pantoprazole 40 mg EC Tab PO SCH (10:00)
[2017-12-18 10:04] LABS: BLOOD UREA NITROGEN 18 mg/dL (9-20); CALCIUM 9.3 mg/dl (8.6-10.4); GFR AFRICAN-AMERICAN > 60; GFR NON-AFRICAN AMERICAN > 60
[2017-12-18 13:12] VITALS: TEMP 97.8
--- NOTE | 2017-12-18 13:27 | CP.PCM.PN ---
Subjective - Date & Time of Evaluation Date of Evaluation: 12/18/17 Time of Evaluation: 11:30 - Subjective Subjective: Patient seen today denies any chest pain, sob, headache, blurred vision, N/V/ D , tolerated liquid diet without any issues BP STABLE - 130's Objective - Vital Signs/Intake and Output Vital Signs (last 24 hours): Temp Pulse Resp BP Pulse Ox 97.8 F 80 17 139/67 98 12/18/17 12:00 12/18/17 10:00 12/18/17 08:00 12/18/17 08:00 12/18/17 08:00 Intake and Output: 12/18/17 12/18/17 06:59 18:59 Intake Total 520 Output Total 850 Balance -330 - Medications Medications: Current Medications Clonidine HCl (Catapres) 0.1 mg PO Q8H [facility] Last Admin: 12/18/17 09:34 Dose: 0.1 mg Lisinopril (Zestril) 10 mg PO DAILY [facility] Last Admin: 12/18/17 09:34 Dose: 10 mg Pantoprazole Sodium (Protonix Ec Tab) 40 mg PO DAILY [facility] Last Admin: 12/18/17 09:34 Dose: 40 mg - Labs Labs: 12/18/17 08:52 12/18/17 08:52 PT 12.6 SECONDS (9.7-12.2) H 12/16/17 16:26 INR 1.2 12/16/17 16:26 APTT 33 SECONDS (21-34) 12/16/17 16:26 Assessment and Plan - Assessment and Plan (Free Text) Assessment: A/P 52 yr olf male with pmhx of HTN , admitted with Upper GI bleed, and Hypertensive urgency Hgb stable and no further vomiting reported since admission BP better controlled with medication diet advanced to regular and pateint tolerated D/w Dr. Savage, cleared for discharge from GI stand point and continue PPI seen by Dr. Ortiz today, cleared for discharge home today and f/u with his office on Friday discharge plan discussed with patient who understands and agrees with plan RX given to the patient
[2017-12-18 18:22] VITALS: PULSE 74; RESP 13; O2SAT 99
== END 2017-12-18 14:45 | disposition home or self-care (01) | DRG 134 ==
LOC: C.ER 15:42 → C.9E 20:34 → C.9I 22:03
PROVIDERS: ADMIT Internal Medicine Nephrology; ATTEND Internal Medicine Nephrology
DX: I16.0 Hypertensive urgency (principal); K92.2 Gastrointestinal hemorrhage, unspecified; F12.10 Cannabis abuse, uncomplicated